=== PATIENT | male | born 1980 ===

== ENCOUNTER 2021-02-15 13:38 | Observation (INO) ==
[2021-02-15] MEDS ORDERED: Ondansetron 4 MG/2 ML VIAL IVP PRN ×2 (14:54→20:55)
[2021-02-15] MEDS ORDERED: *HR* HYDROcodone/Acet 5/325 mg TABLET PO PRN ×2 (14:54→20:55)
[2021-02-15] MEDS ORDERED: *HR* OxyCODONE/APAP 5/325 TABLET PO PRN (14:54)
[2021-02-15] MEDS ORDERED: *HR* Midazolam HCl 2 MG/2 ML VIAL ONE ×2 (15:05→17:17)
[2021-02-15] MEDS ORDERED: *HR* Propofol 200 MG/20 ML VIAL IVP ONE ×2 (15:05→17:17)
[2021-02-15] MEDS ORDERED: *HR* Rocuronium Bromide 50 MG/5 ML VIAL ONE ×3 (15:05→18:57)
[2021-02-15] MEDS ORDERED: *HR* Succinylcholine 200 MG/10 ML VIAL IVP ONE (15:05)
[2021-02-15] MEDS ORDERED: *HR* FentaNYL (PF) 100 MCG/2 ML VIAL ONE ×3 (15:05→18:39)
[2021-02-15] MEDS ORDERED: Lidocaine HCL 4 ML Topical Solution (Laryng-O-Jet Kit Sterile Pak) TP ONE (15:05)
[2021-02-15] MEDS ORDERED: Lidocaine -MPF 2% 5 ML VIAL ONE ×3 (15:05→19:07)
[2021-02-15] MEDS ORDERED: Ondansetron 4 MG/2 ML VIAL ONE ×2 (15:05→17:17)
[2021-02-15] MEDS ORDERED: *HR* OxyCODONE/APAP 10/325 TABLET PO PRN ×2 (15:35→20:55)
[2021-02-15] MEDS ORDERED: Lidocaine -MPF 4% 5 ML AMPUL ONE (17:17)
[2021-02-15] MEDS ORDERED: *HR* OxyCODONE Immed Rel 5 MG TABLET PO PRN ×2 (17:24→20:55)
[2021-02-15] MEDS ORDERED: *HR* HYDROmorphone (PF) 1 MG/ML SYRINGE IVP PRN ×2 (17:24→20:55)
[2021-02-15] MEDS ORDERED: Pregabalin 75 MG CAPSULE PO ONE ×2 (17:24→20:55)
[2021-02-15] MEDS ORDERED: *HR* Labetalol 20 MG/4 ML SYRINGE IVP PRN ×2 (17:24→20:55)
[2021-02-15] MEDS ORDERED: Famotidine 20 MG/2 ML VIAL IVP ONE ×2 (17:24→20:55)
[2021-02-15] MEDS ORDERED: Acetaminophen IV 1,000 MG/100 ML BAG IVPB ONE ×3 (17:24→20:55)
[2021-02-15] MEDS ORDERED: *HR* HYDROmorphone 2 MG TABLET PO PRN ×2 (17:24→20:55)
[2021-02-15] MEDS ORDERED: Famotidine 20 MG/2 ML VIAL ONE (17:48)
[2021-02-15] MEDS ORDERED: *HR* Vasopressin 20 UNIT/ML VIAL ONE (17:48)
[2021-02-15] MEDS ORDERED: cefOXitin 2,000 MG in Water for inj. (sterile) 20 ML IVP ONE (18:21)
[2021-02-15] MEDS ORDERED: Albumin Human 5% 0 GM/0 ML IV.SOLN ONE (18:48)
[2021-02-15] MEDS ORDERED: dexmedeTOMIDine in 0.9 % NaCL 80 MCG/20 ML MLS ONE (18:49)
[2021-02-15] MEDS ORDERED: CefOXitin 2,000 MG VIAL ONE (18:57)
[2021-02-16 06:59] LABS: Hematocrit 48.1 % (37.5-50.1); Hemoglobin 16.4 g/dL (12.9-16.9); Mean Corpuscular HGB Conc 34.1 g/dL (31.6-35.5); Mean Corpuscular Hemoglobin 30.5 pg (28.0-33.3); Mean Corpuscular Volume 89.6 fL (83.0-100.0); Mean Platelet Volume 9.9 fL (9.4-12.4); Platelet Count 222 K/mcL (140-400); Red Blood Count 5.37 M/mcL (4.19-5.50); Red Cell Distribution Width 11.8 % (11.5-14.5)
[2021-02-16 07:19] LABS: BUN/Creatinine Ratio 16 (6-26); Blood Urea Nitrogen 13 mg/dL (6-20); Calcium 8.9 mg/dL (8.6-10.3); Carbon Dioxide 23 mEq/L (23-29); Chloride 107 mEq/L (98-107); Glucose 111 mg/dL (70-105); Osmolality,Calculated 285 (280-300); Potassium 4.2 mEq/L (3.5-5.1); Sodium 137 mEq/L (136-145); eGFR For African Americans > 60 (> 60); eGFR For Non-African Americans > 60 (> 60)
[2021-02-16] MEDS ORDERED: *HR* LORazepam 2 MG/ML VIAL IVP ONE (10:44)
[2021-02-17] MEDS ORDERED: *HR* OxyCODONE/APAP 5/325 TABLET PO PRN (08:51)
[2021-02-17] MEDS ORDERED: FLUoxetine 20 MG CAPSULE PO SCH (09:00)
[2021-02-17] MEDS ORDERED: hydrOXYzine pamoate 25 MG CAPSULE PO ONE (09:37)
[2021-02-17 11:20] VITALS: BP 126/74; PULSE 70; TEMP 97.6; O2SAT 99
== END 2021-02-17 12:43 | disposition home or self-care (01) ==
LOC: 3ANU 13:38 → EMEROOARM 13:38 → 3ANU 17:16
PROVIDERS: ADMIT Family Medicine; ATTEND Surgery